=== PATIENT | female | born 1975 | race Caucasian/White ===

== ENCOUNTER 2021-09-06 08:00 | Outpatient (CLI) | payer BC ==
--- NOTE | 2021-09-06 17:00 | XRAY Report ---
PROCEDURE: Knee 3 View LT INDICATIONS: KNEE JOINT PAIN, LEFT TECHNIQUE: 3 views of the left knee(s) were acquired. COMPARISON: None. FINDINGS: BONES/JOINT: Cortical irregularity of the inferior patella, concerning for fracture. Small suprapatel lar joint effusion. Mild medial compartment joint space loss. SOFT TISSUES: Prepatellar soft tissue edema. IMPRESSION: 1.Mildly displaced fracture of the inferior patella. Reviewed by: Norman Iniguez MD on 09/06/2021 4:58 PM PST Approved by: Norman Iniguez MD on 09/06/2021 4:58 PM PST Station ID: [id number]
== END 2021-09-06 23:59 ==
LOC: DI.N 08:00
PROVIDERS: ATTEND Family Medicine
DX: S82.092A Other fracture of left patella, initial encounter for closed fracture (principal)